=== PATIENT | female | born 1985 | race Caucasian/White ===

== ENCOUNTER 2017-07-11 14:44 | Inpatient (IN) | payer BC, OTHER ==
[2017-07-11 15:28] LABS: Amorphous Sediment,Urine Occasional /hpf; Appearance,Urine Cloudy (Clear); Bacteria,Urine Few /hpf; Bilirubin,Urine Negative (Negative); Blood,Urine Large (Negative); Color,Urine Light Yellow; Glucose,Urine (UA) Negative (Negative); Ketones,Urine Negative (Negative); Leukocyte Esterase,Urine Trace (Negative); Mucus,Urine Rare /hpf; PH, Urine 6.5 (5.0-8.0); Protein,Urine Negative (Negative); RBC,Urine 11 /hpf (0-5); Specific Gravity,Urine 1.002 (1.001-1.035); Squamous Epithelial Cell,Urine 1 /hpf (0-4); Urobilinogen,Urine <2.0 mg/dL (<2.0); WBC,Urine 16 /hpf (0-5)
[2017-07-11 16:25] LABS: Basophils # (A) 0.1 k/uL (0-0.2); Basophils % (A) 1 %; Eosinophils # (A) 0.1 k/uL (0-0.7); Eosinophils % (A) 1 %; HCT 41.5 % (34.0-46.0); HGB 13.8 gm/dL (11.4-16.0); Lymphocytes # (A) 2.4 k/uL (1.0-4.8); Lymphocytes % (A) 32 %; MCH 29.5 pg (25.0-35.0); MCHC 33.2 g/dL (31.0-37.0); MCV 88.8 fL (80.0-100.0); Mean Platelet Volume 8.4; Monocytes # (A) 0.4 k/uL (0-1.0); Monocytes % (A) 6 %; Neutrophils # (A) 4.4 k/uL (1.3-7.7); Neutrophils % (A) 59 %; Platelet Count 242 k/uL (150-450); RBC 4.67 m/uL (3.80-5.40); RDW 13.2 % (11.5-15.5); WBC 7.5 k/uL (3.8-10.6)
[2017-07-11] MEDS ORDERED: FAMOTIDINE 20 MG TAB PO STA (16:29)
[2017-07-11] MEDS ORDERED: IBUPROFEN 600 MG TAB PO STA (16:29)
[2017-07-11 16:34] LABS: ALT 772 U/L (9-52); AST 186 U/L (14-36); Albumin 4.3 g/dL (3.5-5.0); Alkaline Phosphatase 196 U/L (38-126); Amylase 45 U/L (30-110); Anion Gap 11 mmol/L; Blood Urea Nitrogen 12 mg/dL (7-17); Calcium 9.4 mg/dL (8.4-10.2); Carbon Dioxide 26 mmol/L (22-30); Chloride 104 mmol/L (98-107); Glucose 85 mg/dL (74-99); Lipase 51 U/L (23-300); Potassium 3.9 mmol/L (3.5-5.1); Sodium 141 mmol/L (137-145); Total Bilirubin 0.6 mg/dL (0.2-1.3); Total Protein 7.5 g/dL (6.3-8.2)
--- NOTE | 2017-07-11 17:19 | ED ---
Abdominal Pain HPI - General Chief Complaint: Abdominal Pain Stated Complaint: Gallbladder, high liver enzymes Time Seen by Provider: 07/11/17 16:12 Source: patient Mode of arrival: ambulatory Limitations: no limitations - History of Present Illness Initial Comments: 32 yoF presenting after being sent by her primary care physician E to concern for elevated liver enzymes. Patient states for the last 3 days she has constant epigastric pressure is accompanied by emesis. She states it is been waxing and waning without any alleviating or exacerbating symptoms. She states she has had similar pain for months however it has never been this consistent. She saw her primary care doctor who ordered labs and found her liver enzymes be over 900. Patient currently denies any pain. - Related Data Home Medications Medication Instructions Recorded Confirmed No Known Home Medications [No 07/11/17 07/11/17 Known Home Medications] Allergies Allergy/AdvReac Type Severity Reaction Status Date / Time No Known Allergies Allergy Verified 07/11/17 16:34 Review of Systems ROS Statement: Those systems with pertinent positive or pertinent negative responses have been documented in the HPI. ROS Other: All systems not noted in ROS Statement are negative. Respiratory: Denies: cough, dyspnea Cardiovascular: Denies: chest pain Gastrointestinal: Reports: abdominal pain, nausea, vomiting Genitourinary: Denies: urgency, dysuria Musculoskeletal: Denies: back pain Past Medical History Past Medical History: No Reported History History of Any Multi-Drug Resistant Organisms: None Reported Additional Past Surgical History / Comment(s): D&C Past Anesthesia/Blood Transfusion Reactions: No Reported Reaction Past Psychological History: No Psychological Hx Reported Smoking Status: Never smoker Past Alcohol Use History: None Reported Past Drug Use History: None Reported - Past Family History Mother Family Medical History: No Reported History General Exam Limitations: no limitations General appearance: alert, in no apparent distress Head exam: Present: atraumatic, normocephalic Eye exam: Present: normal appearance, EOMI Respiratory exam: Present: normal lung sounds bilaterally. Absent: respiratory distress, wheezes Cardiovascular Exam: Present: regular rate, normal rhythm, normal heart sounds GI/Abdominal exam: Present: soft. Absent: distended, tenderness, guarding, rebound (no Aviles's sign ) Extremities exam: Present: normal inspection Neurological exam: Present: alert Psychiatric exam: Present: normal affect, normal mood Skin exam: Present: warm, dry, intact Course Vital Signs 07/11/17 07/11/17 15:03 18:03 Temperature 98.5 F Pulse Rate 89 74 Respiratory 18 18 Rate Blood Pressure 143/75 129/78 O2 Sat by Pulse 98 97 Oximetry Medical Decision Making - Medical Decision Making 32 yoF presenting with the c/c of abdominal pain and elevated LFTs. On initial exam the patient is awake, alert, and in NAD. VSS. patient is nontoxic appearing and has no abdominal pain. Her ALT was found to be 772, AST 186, and alk phos 196. Her total bili was not elevated and she had no leukocytosis. Patient's UA had WBCs and RBCS, however the patient is currently on her period. She denies urinary symptoms. Unlikely UTI and will elect not to treat. US showed hepatomegaly and possible acute cholecystitis. Started patient on Rocephin Spoke with Dr. Marsh who is agreeable to admission. He would like Dr. Benítez on consult. He would like her to be on a clear liquid diet until midnight and a CMP in the am. Patient is currently resting comfortably and ready for transfer to the floor. - Lab Data Result diagrams: 07/11/17 15:35 07/11/17 15:35 Lab Results 07/11/17 07/11/17 07/11/17 Range/Units 15:06 15:06 15:35 WBC (3.8-10.6) k/uL RBC (3.80-5.40) m/uL Hgb (11.4-16.0) gm/dL Hct (34.0-46.0) % MCV (80.0-100.0) fL MCH (25.0-35.0) pg MCHC (31.0-37.0) g/dL RDW (11.5-15.5) % Plt Count (150-450) k/uL Neutrophils % % Lymphocytes % % Monocytes % % Eosinophils % % Basophils % % Neutrophils # (1.3-7.7) k/uL Lymphocytes # (1.0-4.8) k/uL Monocytes # (0-1.0) k/uL Eosinophils # (0-0.7) k/uL Basophils # (0-0.2) k/uL Sodium 141 (137-145) mmol/L Potassium 3.9 (3.5-5.1) mmol/L Chloride 104 (98-107) mmol/L Carbon Dioxide 26 (22-30) mmol/L Anion Gap 11 mmol/L BUN 12 (7-17) mg/dL Creatinine 0.70 (0.52-1.04) mg/dL Est GFR (MDRD) Af Amer >60 (>60 ml/min/1.73 sqM) Est GFR (MDRD) Non-Af >60 (>60 ml/min/1.73 sqM) Glucose 85 (74-99) mg/dL Calcium 9.4 (8.4-10.2) mg/dL Total Bilirubin 0.6 (0.2-1.3) mg/dL AST 186 H (14-36) U/L ALT 772 H (9-52) U/L Alkaline Phosphatase 196 H (38-126) U/L Total Protein 7.5 (6.3-8.2) g/dL Albumin 4.3 (3.5-5.0) g/dL Amylase 45 (30-110) U/L Lipase 51 (23-300) U/L Urine Color Light Yellow Urine Appearance Cloudy H (Clear) Urine pH 6.5 (5.0-8.0) Ur Specific [place] 1.002 (1.001-1.035) Urine Protein Negative (Negative) Urine Glucose (UA) Negative (Negative) Urine Ketones Negative (Negative) Urine Blood Large H (Negative) Urine Nitrite Negative (Negative) Urine Bilirubin Negative (Negative) Urine Urobilinogen <2.0 (<2.0) mg/dL Ur Leukocyte Esterase Trace H (Negative) Urine RBC 11 H (0-5) /hpf Urine WBC 16 H (0-5) /hpf Ur Squamous Epith Cells 1 (0-4) /hpf Amorphous Sediment Occasional H (None) /hpf Urine Bacteria Few H (None) /hpf Urine Mucus Rare H (None) /hpf Urine HCG, Qual Not Detected (Not Detectd) 07/11/17 Range/Units 15:35 WBC 7.5 (3.8-10.6) k/uL RBC 4.67 (3.80-5.40) m/uL Hgb 13.8 (11.4-16.0) gm/dL Hct 41.5 (34.0-46.0) % MCV 88.8 (80.0-100.0) fL MCH 29.5 (25.0-35.0) pg MCHC 33.2 (31.0-37.0) g/dL RDW 13.2 (11.5-15.5) % Plt Count 242 (150-450) k/uL Neutrophils % 59 % Lymphocytes % 32 % Monocytes % 6 % Eosinophils % 1 % Basophils % 1 % Neutrophils # 4.4 (1.3-7.7) k/uL Lymphocytes # 2.4 (1.0-4.8) k/uL Monocytes # 0.4 (0-1.0) k/uL Eosinophils # 0.1 (0-0.7) k/uL Basophils # 0.1 (0-0.2) k/uL Sodium (137-145) mmol/L Potassium (3.5-5.1) mmol/L Chloride (98-107) mmol/L Carbon Dioxide (22-30) mmol/L Anion Gap mmol/L BUN (7-17) mg/dL Creatinine (0.52-1.04) mg/dL Est GFR (MDRD) Af Amer (>60 ml/min/1.73 sqM) Est GFR (MDRD) Non-Af (>60 ml/min/1.73 sqM) Glucose (74-99) mg/dL Calcium (8.4-10.2) mg/dL Total Bilirubin (0.2-1.3) mg/dL AST (14-36) U/L ALT (9-52) U/L Alkaline Phosphatase (38-126) U/L Total Protein (6.3-8.2) g/dL Albumin (3.5-5.0) g/dL Amylase (30-110) U/L Lipase (23-300) U/L Urine Color Urine Appearance (Clear) Urine pH (5.0-8.0) Ur Specific [place] (1.001-1.035) Urine Protein (Negative) Urine Glucose (UA) (Negative) Urine Ketones (Negative) Urine Blood (Negative) Urine Nitrite (Negative) Urine Bilirubin (Negative) Urine Urobilinogen (<2.0) mg/dL Ur Leukocyte Esterase (Negative) Urine RBC (0-5) /hpf Urine WBC (0-5) /hpf Ur Squamous Epith Cells (0-4) /hpf Amorphous Sediment (None) /hpf Urine Bacteria (None) /hpf Urine Mucus (None) /hpf Urine HCG, Qual (Not Detectd) Disposition Clinical Impression: Hepatomegaly, Acute cholecystitis Disposition: ADMITTED IP TO THIS HOSP Condition: Good Referrals: Sirisha Lantigua DO [Primary Care Provider] - 1-2 days Decision Date: 07/11/17 Decision Time: 19:20
--- NOTE | 2017-07-11 17:54 | XR ---
EXAMINATION TYPE: XR KUB DATE OF EXAM: 07/11/2017 COMPARISON: NONE INDICATION: Abdomen pain epigastric pain TECHNIQUE: Single view abdomen frontal projection upright view FINDINGS: There is a normal bowel gas pattern. Psoas margins are normal. No organomegaly is present. Osseous structures appear intact. IMPRESSION: 1. Unremarkable abdomen.
--- NOTE | 2017-07-11 18:26 | US ---
EXAMINATION TYPE: US abdomen limited DATE OF EXAM: 07/11/2017 COMPARISON: US CLINICAL HISTORY: Elevated LFTs and epigastric pain . Elevated LFT's and epigastric pain EXAM MEASUREMENTS: Liver Length: 18.0 cm Gallbladder Wall: 0.5 cm CBD: 0.3 cm Right Kidney: 10.4 x 3.9 x 4.8 cm Pancreas: wnl, tail obscured by overlying bowel gas Liver: Enlarged. Craniocaudal dimension is 18 cm. Normal is less than 15.5 cm. Gallbladder: Multiple gallstones with thickened wall. Gallbladder wall 0.45 cm which is thickened. Normal less than 0.3 cm. Evidence for sonographic Aviles's sign: No CBD: wnl Right Kidney: wnl IMPRESSION: 1. Hepatomegaly measuring 18 cm 2. Cholelithiasis. Some wall thickening may be present. Consider cholecystitis within the differentia l.
[2017-07-11] MEDS ORDERED: cefTRIAXone IN SWFI 1,000 MG/10 ML SYRINGE IVP STA (18:39)
[2017-07-11] MEDS ORDERED: ONDANSETRON 4 MG/2 ML VIAL IVP PRN (19:23)
[2017-07-11] MEDS ORDERED: NALOXONE 0.4 MG/ML 1 ML VIAL IV PRN (19:23)
[2017-07-11] MEDS ORDERED: ACETAMINOPHEN TAB 325 MG TAB PO PRN (19:23)
[2017-07-11] MEDS: LACTATED RINGERS 1,000 ML IV SCH (19:59)
[2017-07-11 22:00] VITALS: BMI 30.2
[2017-07-12] MEDS: LACTATED RINGERS 1,000 ML IV SCH ×4 (03:49→12:13)
[2017-07-12] MEDS: KETOROLAC 30 MG/ML 1 ML VIAL IVP PRN ×3 (06:08→23:45)
[2017-07-12 07:05] LABS: ALT 539 U/L (9-52); AST 110 U/L (14-36); Albumin 3.4 g/dL (3.5-5.0); Alkaline Phosphatase 157 U/L (38-126); Anion Gap 9 mmol/L; Blood Urea Nitrogen 10 mg/dL (7-17); Calcium 8.6 mg/dL (8.4-10.2); Carbon Dioxide 28 mmol/L (22-30); Chloride 105 mmol/L (98-107); Glucose 84 mg/dL (74-99); Potassium 3.8 mmol/L (3.5-5.1); Sodium 142 mmol/L (137-145); Total Bilirubin 0.7 mg/dL (0.2-1.3); Total Protein 6.2 g/dL (6.3-8.2)
[2017-07-12] MEDS ORDERED: cefTRIAXone IN SWFI 1,000 MG/10 ML SYRINGE IVP SCH (09:00)
[2017-07-12] MEDS ORDERED: IV FLUID CONTINUATION 1,000 ML IV ONE (09:30)
[2017-07-12] MEDS ORDERED: DEXAMETHASONE SOD PHOSPHATE 10 MG/ML 1 ML VIAL INTRAARTIC ONE (10:12)
[2017-07-12] MEDS ORDERED: ONDANSETRON 4 MG/2 ML VIAL IVP ONE (10:13)
--- NOTE | 2017-07-12 10:59 | P.GSHP ---
History of Present Illness H&P Date: 07/11/17 Chief Complaint: Right upper quadrant pain This is a 32-year-old female who sees Dr. Sirisha Lantigua is an outpatient. Patient's had complaints of right quadrant pain for over one week. Patient presents emergency room yesterday with complaints of abdominal pain. Patient evidence of choledocholithiasis elevated liver enzymes. She also some to have gallstones. Today her pain is resolved. Her liver function test improved. She 'll undergo laparoscopic cholecystectomy today. Past Medical History Past Medical History: No Reported History History of Any Multi-Drug Resistant Organisms: None Reported Additional Past Surgical History / Comment(s): D&C Past Anesthesia/Blood Transfusion Reactions: No Reported Reaction Smoking Status: Never smoker - Past Family History Mother Family Medical History: Coronary Artery Disease (CAD) Additional Family Medical History / Comment(s): Pace maker and defibilator placed. Medications and Allergies Home Medications Medication Instructions Recorded Confirmed Type No Known Home Medications [No 07/11/17 07/11/17 History Known Home Medications] Allergies Allergy/AdvReac Type Severity Reaction Status Date / Time No Known Allergies Allergy Verified 07/11/17 16:34 Surgical - Exam Vital Signs Temp Pulse Resp BP Pulse Ox 98.5 F 89 18 143/75 98 07/11/17 15:03 07/11/17 15:03 07/11/17 15:03 07/11/17 15:03 07/11/17 15:03 - General well developed, no distress - Eyes PERRL - ENT normal pinna - Neck no masses - Respiratory normal expansion - Cardiovascular Rhythm: regular - Abdomen Abdomen: soft, non tender Results - Labs 07/11/17 15:35 07/12/17 06:34 Abnormal Lab Results - Last 24 Hours (Table) 07/11/17 07/11/17 07/12/17 Range/Units 15:06 15:35 06:34 AST 186 H 110 H (14-36) U/L ALT 772 H 539 H (9-52) U/L Alkaline Phosphatase 196 H 157 H (38-126) U/L Total Protein 6.2 L (6.3-8.2) g/dL Albumin 3.4 L (3.5-5.0) g/dL Urine Appearance Cloudy H (Clear) Urine Blood Large H (Negative) Ur Leukocyte Esterase Trace H (Negative) Urine RBC 11 H (0-5) /hpf Urine WBC 16 H (0-5) /hpf Amorphous Sediment Occasional H (None) /hpf Urine Bacteria Few H (None) /hpf Urine Mucus Rare H (None) /hpf Diabetes panel 07/11/17 07/12/17 Range/Units 15:35 06:34 Sodium 141 142 (137-145) mmol/L Potassium 3.9 3.8 (3.5-5.1) mmol/L Chloride 104 105 (98-107) mmol/L Carbon Dioxide 26 28 (22-30) mmol/L BUN 12 10 (7-17) mg/dL Creatinine 0.70 0.70 (0.52-1.04) mg/dL Glucose 85 84 (74-99) mg/dL Calcium 9.4 8.6 (8.4-10.2) mg/dL AST 186 H 110 H (14-36) U/L ALT 772 H 539 H (9-52) U/L Alkaline Phosphatase 196 H 157 H (38-126) U/L Total Protein 7.5 6.2 L (6.3-8.2) g/dL Albumin 4.3 3.4 L (3.5-5.0) g/dL Calcium panel 07/11/17 07/12/17 Range/Units 15:35 06:34 Calcium 9.4 8.6 (8.4-10.2) mg/dL Albumin 4.3 3.4 L (3.5-5.0) g/dL Pituitary panel 07/11/17 07/12/17 Range/Units 15:35 06:34 Sodium 141 142 (137-145) mmol/L Potassium 3.9 3.8 (3.5-5.1) mmol/L Chloride 104 105 (98-107) mmol/L Carbon Dioxide 26 28 (22-30) mmol/L BUN 12 10 (7-17) mg/dL Creatinine 0.70 0.70 (0.52-1.04) mg/dL Glucose 85 84 (74-99) mg/dL Calcium 9.4 8.6 (8.4-10.2) mg/dL Adrenal panel 07/11/17 07/12/17 Range/Units 15:35 06:34 Sodium 141 142 (137-145) mmol/L Potassium 3.9 3.8 (3.5-5.1) mmol/L Chloride 104 105 (98-107) mmol/L Carbon Dioxide 26 28 (22-30) mmol/L BUN 12 10 (7-17) mg/dL Creatinine 0.70 0.70 (0.52-1.04) mg/dL Glucose 85 84 (74-99) mg/dL Calcium 9.4 8.6 (8.4-10.2) mg/dL Total Bilirubin 0.6 0.7 (0.2-1.3) mg/dL AST 186 H 110 H (14-36) U/L ALT 772 H 539 H (9-52) U/L Alkaline Phosphatase 196 H 157 H (38-126) U/L Total Protein 7.5 6.2 L (6.3-8.2) g/dL Albumin 4.3 3.4 L (3.5-5.0) g/dL Assessment and Plan Assessment: Cholelithiasis with cholecystitis. Patient undergo laparoscopic cholecystectomy
[2017-07-12] MEDS ORDERED: HEPARIN SODIUM,PORCINE 5,000 UNIT/ML 1 ML VIAL SQ ONE (11:00)
[2017-07-12] MEDS ORDERED: fentaNYL (PF) 50 MCG/ML 2 ML AMP ONE (11:34)
[2017-07-12] MEDS ORDERED: GLYCOPYRROLATE 0.2 MG/ML 2 ML VIAL ONE (11:34)
[2017-07-12] MEDS ORDERED: NEOSTIGMINE 1 MG/ML 10 ML VIAL ONE (11:34)
[2017-07-12] MEDS ORDERED: PROPOFOL 10 MG/ML 20 ML VIAL IV ONE (11:34)
[2017-07-12] MEDS ORDERED: ROCURONIUM BROMIDE 10 MG/ML 10 ML VIAL IV ONE (11:34)
[2017-07-12] MEDS ORDERED: MIDAZOLAM 2 MG/2 ML VIAL ONE (11:34)
[2017-07-12] MEDS ORDERED: KETOROLAC 30 MG/ML 1 ML VIAL ONE (11:34)
[2017-07-12] MEDS ORDERED: SUCCINYLCHOLINE CHLORIDE 100 MG/5 ML SYR IV ONE (11:34)
[2017-07-12] MEDS ORDERED: LIDOCAINE 1% INJ 10MG/ML (20 ML MDV) ONE (11:34)
[2017-07-12] MEDS ORDERED: MORPHINE SULFATE 10 MG/ML SYRINGE ONE (11:34)
[2017-07-12] MEDS ORDERED: BUPIVACAINE (PF) 0.25% 30 ML VIAL SQ ONE (11:57)
--- NOTE | 2017-07-12 12:22 | P.OP ---
Date of Procedure: 07/12/17 Preoperative Diagnosis: Cholecystitis Postoperative Diagnosis: cholecystitis Procedure(s) Performed: Laparoscopic cholecystectomy Anesthesia: FATIMAH Surgeon: Henry Marsh Estimated Blood Loss (ml): 5 Pathology: other (Gallbladder) Condition: stable Disposition: PACU Description of Procedure: The patient was placed on the operating table. The patient received a general endotracheal tube anesthesia. The patients abdomen was prepped and draped in the usual sterile fashion. Through an infraumbilical stab incision, the fascia of the anterior abdominal wall was grasped with a pair of Kochers and then the Veress needle was placed in the peritoneal cavity. Position of the Veress needle was confirmed with positive drop test. The abdomen was then insufflated. After adequate insufflation, the 10 mm trocar was placed in the peritoneal cavity. Following this the laparoscope was placed in the peritoneal cavity. The patient was placed in the head-up, right side up position and then a 5 mm trocar was placed in the right lateral and right subcostal position under direct visualization. A 8 mm trocar was placed in the epigastric position. The gallbladder was grasped in the fundus and infundibulum. Traction on the gallbladder was placed in the lateral and the cephalad positions. The triangle of Calot was visualized.. The cystic duct was bluntly dissected until the union of the cystic duct and common bile duct was seen. The cystic duct was then divided and sealed with the Harmonic scissors. A PDS Endoloop was then placed throughout the cystic duct stump. The cystic artery divided and sealed with the Harmonic scissors. The gallbladder was then removed from the liver bed using Harmonic scissors. The gallbladder was then extracted through the epigastric port site. Operative field was checked for any bleeding spots and Harmonic scissors was used to coagulate the liver bed. The abdomen was irrigated. The trocars were removed. The skin was closed using interrupted 3-0 Vicryl suture. Dermabond dressing were applied. The patient tolerated the procedure well.
[2017-07-12] MEDS: MORPHINE SULFATE 4 MG/ML SYRINGE IVP PRN ×3 (12:33→20:23)
--- NOTE | 2017-07-12 14:26 | P.CONS ---
History of Present Illness - Reason for Consult Consult date: 07/12/17 Medical management Requesting physician: Henry Marsh - Chief Complaint Abdominal pain and elevated LFTs - History of Present Illness This is a 32-year-old female, patient of [facility]. She has no significant past medical history. Patient reports that she is had episodes of right upper quadrant and epigastric abdominal pain with nausea and vomiting off and on for several months. Within the last week she had severe symptoms and went to her PCP on Tuesday. Blood work was drawn. On Tuesday she was notified to have elevated LFTs and was told that one of her numbers was over 900. She was told to go to the emergency room for further evaluation. On admission AST was 186 ALT 772 and alk phos was 196. Abdominal ultrasound had shown hepatomegaly with 18 cm with gallstones and gallbladder wall thickening. She was admitted to surgical service and underwent a laparoscopic cholecystectomy today. Patient complaining of some mild pain and nausea that improved with medication. She denies any chest pain or shortness of breath. Denies any vomiting. Denies any bowel movement changes or urinary symptoms. We've been consulted for medical management. Her urinalysis had revealed WBCs and RBCs. Patient is currently on her period. Urine culture obtained. She's asymptomatic for UTI. Was started on Rocephin for her acute cholecystitis in the emergency room. Review of Systems Please refer to HPI otherwise unremarkable Past Medical History Past Medical History: No Reported History History of Any Multi-Drug Resistant Organisms: None Reported Additional Past Surgical History / Comment(s): D&C Past Anesthesia/Blood Transfusion Reactions: No Reported Reaction Smoking Status: Never smoker - Past Family History Mother Family Medical History: Coronary Artery Disease (CAD) Additional Family Medical History / Comment(s): Pace maker and defibilator placed. Medications and Allergies Home Medications Medication Instructions Recorded Confirmed Type No Known Home Medications [No 07/11/17 07/11/17 History Known Home Medications] Allergies Allergy/AdvReac Type Severity Reaction Status Date / Time No Known Allergies Allergy Verified 07/11/17 16:34 Physical Exam Vitals: Vital Signs Temp Pulse Pulse Pulse Pulse Resp BP 07/12/17 13:50 75 07/12/17 13:35 74 07/12/17 13:20 75 18 07/12/17 13:05 98.9 F 64 18 07/12/17 12:50 62 16 07/12/17 12:35 66 16 07/12/17 12:20 97.8 F 89 16 07/12/17 10:17 98.6 F 84 16 07/12/17 08:05 98.1 F 74 18 07/12/17 07:00 98.1 F 74 17 07/12/17 03:45 97.9 F 66 16 07/11/17 20:40 98.1 F 79 16 07/11/17 20:02 98.4 F 76 18 128/72 07/11/17 19:31 80 18 117/79 07/11/17 18:03 74 18 129/78 07/11/17 15:03 98.5 F 89 18 143/75 BP BP Pulse Ox 07/12/17 13:50 120/65 95 07/12/17 13:35 110/69 95 07/12/17 13:20 107/72 95 07/12/17 13:05 112/69 94 L 07/12/17 12:50 116/62 95 07/12/17 12:35 116/56 100 07/12/17 12:20 119/62 99 07/12/17 10:17 111/79 98 07/12/17 08:05 104/69 96 07/12/17 07:00 104/69 96 07/12/17 03:45 110/63 98 07/11/17 20:40 122/76 98 07/11/17 20:02 98 07/11/17 19:31 98 07/11/17 18:03 97 07/11/17 15:03 98 Intake and Output 07/11/17 07/12/17 07/12/17 22:59 06:59 14:59 Intake Total 240 970 900 Output Total 5 Balance 240 970 895 Intake: IV 900 Intake, IV Titration 970 Amount Lactated Ringers 1,000 ml 970 @ 125 mls/hr IV .Q8H [facility] Rx#:[id number] Oral 240 Output: Estimated Blood Loss 5 Other: # Voids 2 Weight 90 kg Head normocephalic Neck supple Lungs clear to auscultation bilaterally no wheezing or crackles Heart regular rate and rhythm S1-S2, no rub or gallop Abdomen is soft tender incision sites. Hypoactive bowel sounds Extremities no edema Neuro alert and orientated to 3 Results CBC & Chem 7: 07/11/17 15:35 07/12/17 06:34 Labs: Abnormal Lab Results - Last 24 Hours (Table) 07/11/17 07/11/17 07/12/17 Range/Units 15:06 15:35 06:34 AST 186 H 110 H (14-36) U/L ALT 772 H 539 H (9-52) U/L Alkaline Phosphatase 196 H 157 H (38-126) U/L Total Protein 6.2 L (6.3-8.2) g/dL Albumin 3.4 L (3.5-5.0) g/dL Urine Appearance Cloudy H (Clear) Urine Blood Large H (Negative) Ur Leukocyte Esterase Trace H (Negative) Urine RBC 11 H (0-5) /hpf Urine WBC 16 H (0-5) /hpf Amorphous Sediment Occasional H (None) /hpf Urine Bacteria Few H (None) /hpf Urine Mucus Rare H (None) /hpf Assessment and Plan Assessment: 1. Acute cholecystitis: Status post laparoscopic cholecystectomy. Postop day # 0. Started on clear liquid diet per surgeon. Started on Rocephin in the emergency room 2. Urinalysis with large amount of blood likely related to her menstrual cycle. Trace leukocyte Estrace with few bacteria noted on urinalysis. Patient is asymptomatic. Check urine culture. Doubt UTI. But, Covered anyways with the Rocephin Anticipating discharge home tomorrow Thank you for this consultation. We will continue to follow along with you Time with Patient: Greater than 30 (Greater than 50% of the total time spent in counseling and coordination of care.I performed an examination of the patient and discussed their management with the physician Compensation Advisor. I have reviewed the Physician Compensation Advisor's notes and agree with the documented findings and plan of care)
[2017-07-13] MEDS: LACTATED RINGERS 1,000 ML IV SCH (01:39)
[2017-07-13 05:07] VITALS: RESP 16
[2017-07-13] MEDS: KETOROLAC 30 MG/ML 1 ML VIAL IVP PRN (08:40)
[2017-07-13 10:13] VITALS: BP 125/79; PULSE 89; TEMP 98.2
--- NOTE | 2017-07-13 11:11 | P.DS ---
Providers Date of admission: 07/11/17 19:21 Expected date of discharge: 07/13/17 Attending physician: Henry Marsh Consults: 07/11/17 19:24 Consult Physician Routine Consulting Provider: Sue Benítez Consult Reason/Comments: Medical management Do you want consulting provider notified?: Yes Primary care physician: Sirisha Lantigua [facility] Course: Pleasant 32-year-old female presented on the day of admission to the emergency room with a chief complaint right upper quadrant pain onset 1 week prior. Patient stated that the abdominal discomfort did not resolve. Patient stated that the last 3 days the pain was constant in the right upper quadrant radiating to the epigastric area. There was no alleviating or exacerbating symptoms. Patient stated that she had similar pain several months ago however it resolved on its own. Patient saw her primary care physician who ordered labs and found her liver enzymes to be elevated advised patient to come into the emergency room to be admitted for the above-mentioned symptoms patient underwent on July 12 laparoscopic cholecystectomy for acute cholecystitis. Impression discharge diagnoses Present on admission elevated liver enzymes suspect due to acute cholecystitis Present on admission right upper quadrant abdominal pain suspect due to acute cholecystitis Urinalysis with a large amount of blood likely related to menstrual cycle no evidence of a UTI urine culture negative The above impression and plan of care have been discussed and directed by signing physician. Leilani Mace nurse practitioner acting as scribe for signing physician. Patient Condition at Discharge: Good Plan - Discharge Summary New Discharge Prescriptions: New Acetaminophen Tab [Tylenol Tab] 650 mg PO Q4H PRN #30 tablet PRN Reason: Mild Breakthrough Pain Ibuprofen [Motrin] 400 mg PO Q8HR PRN #30 tab PRN Reason: Mild Breakthrough Pain Discharge Medication List Acetaminophen Tab [Tylenol Tab] 650 mg PO Q4H PRN #30 tablet 07/13/17 [Rx] Ibuprofen [Motrin] 400 mg PO Q8HR PRN #30 tab 07/13/17 [Rx] Follow up Appointment(s)/Referral(s): Sirisha Lantigua DO [Primary Care Provider] - 1-2 days Henry Marsh MD [STAFF PHYSICIAN] - 1 Week Activity/Diet/Wound Care/Special Instructions: No tub bath for six weeks. Shower daily. No lifting over 10 pounds for the next 6 weeks. May use ice packs to surgical site. Low-fat diet Avoid constipation use [id number] stool softeners if needed May return to work this coming TuesdayJuly 18 with light duty Discharge Disposition: HOME SELF-CARE
--- NOTE | 2017-07-13 11:19 | P.PN ---
Subjective Progress Note Date: 07/13/17 This is a 32-year-old female, patient of [facility]. She has no significant past medical history. Patient reports that she is had episodes of right upper quadrant and epigastric abdominal pain with nausea and vomiting off and on for several months. Within the last week she had severe symptoms and went to her PCP on Tuesday. Blood work was drawn. On Tuesday she was notified to have elevated LFTs and was told that one of her numbers was over 900. She was told to go to the emergency room for further evaluation. On admission AST was 186 ALT 772 and alk phos was 196. Abdominal ultrasound had shown hepatomegaly with 18 cm with gallstones and gallbladder wall thickening. She was admitted to surgical service and underwent a laparoscopic cholecystectomy today. Patient complaining of some mild pain and nausea that improved with medication. She denies any chest pain or shortness of breath. Denies any vomiting. Denies any bowel movement changes or urinary symptoms. We've been consulted for medical management. Her urinalysis had revealed WBCs and RBCs. Patient is currently on her period. Urine culture obtained. She's asymptomatic for UTI. Was started on Rocephin for her acute cholecystitis in the emergency room. On 07/13/2017 patient is alert and oriented 3 in no apparent distress is minimal discomfort in the abdominal surgical site otherwise no complaints patient is tolerating diet well no nausea or vomiting. There is no fever or chills no chest pain no shortness of breath no cough and no urinary symptoms. Objective - Vital Signs Vital signs: Vital Signs Temp 98.2 F 07/13/17 07:51 Pulse 89 07/13/17 07:51 Resp 16 07/13/17 07:51 BP 125/79 07/13/17 07:51 Pulse Ox 97 07/13/17 07:51 Intake & Output 07/12/17 07/13/17 07/13/17 18:59 06:59 18:59 Intake Total 900 2320 240 Output Total 705 Balance 195 2320 240 Intake: IV 900 Oral 2320 240 Output: Urine 700 Estimated Blood Loss 5 Other: # Voids 1 - Exam Head normocephalic and atraumatic Neck supple no JVD no goiter Lungs clear to auscultation bilaterally no wheezing or crackles Heart regular rate and rhythm S1-S2, no rub or gallop Abdomen is soft tender incision sites. Hypoactive bowel sounds Extremities no edema no cyanosis or clubbing Neuro alert and orientated to 3 - Labs CBC & Chem 7: 07/11/17 15:35 07/12/17 06:34 Labs: Microbiology - Last 24 Hours (Table) 07/11/17 08:29 Urine Culture - Preliminary Urine,Voided Assessment and Plan Plan: 1. Acute cholecystitis: Status post laparoscopic cholecystectomy. Postop day # 1. Tolerating diet well. Started on Rocephin in the emergency room 2. Urinalysis with large amount of blood likely related to her menstrual cycle. Trace leukocyte Estrace with few bacteria noted on urinalysis. Patient is asymptomatic. Check urine culture. Doubt UTI. But, Covered anyways with the Rocephin. Patient should follow-up with her primary care physician Dr. Sirisha Lantigua within the next 5 days Liver enzymes should be rechecked urine analysis should be rechecked Patient is cleared for discharge today from medical standpoint
== END 2017-07-13 12:59 | disposition home or self-care (01) | DRG 419 ==
LOC: EC 14:44 → 6PED 19:21
PROVIDERS: ADMIT Surgery; ATTEND Surgery
PROC: 0FT44ZZ Resection of Gallbladder, Percutaneous Endoscopic Approach (ICD-10-PCS; principal; 2017-07-12 09:25)
DX: K80.00 Calculus of gallbladder with acute cholecystitis without obstruction (principal); R16.0 Hepatomegaly, not elsewhere classified; R74.8 Abnormal levels of other serum enzymes; Z82.49 Family history of ischemic heart disease and other diseases of the circulatory system
CPT/HCPCS: 36415; 74018; 76705; 80053; 81001; 81025; 82150; 83690; 85025; 87086; 88304; 96374; 99285

== ENCOUNTER → 2018-10-03 | Outpatient (CLI) | payer BC ==
[2018-10-04 01:02] LABS: HCG,Quantitative Serum 3376.6 mIU/mL; T4, Free (Free Thyroxine) 0.8 ng/dL (0.80-1.80)
== END | disposition home or self-care (01) ==
LOC: LABWHC1 16:12
PROVIDERS: ATTEND Obstetrics & Gynecology
DX: O03.9 Complete or unspecified spontaneous abortion without complication (principal); Z13.29 Encounter for screening for other suspected endocrine disorder
CPT/HCPCS: 36415; 84439; 84443; 84702

== ENCOUNTER → 2018-10-03 | Outpatient (CLI) | payer BC ==
[2018-10-03 17:28] LABS: Basophils # (A) 0.1 k/uL (0-0.2); Basophils % (A) 1 %; Eosinophils # (A) 0.1 k/uL (0-0.7); Eosinophils % (A) 2 %; HCT 37.8 % (34.0-46.0); Lymphocytes # (A) 2.9 k/uL (1.0-4.8); Lymphocytes % (A) 40 %; MCH 28.9 pg (25.0-35.0); MCHC 31.7 g/dL (31.0-37.0); MCV 91.1 fL (80.0-100.0); Mean Platelet Volume 8.9; Monocytes # (A) 0.3 k/uL (0-1.0); Monocytes % (A) 4 %; Neutrophils # (A) 3.7 k/uL (1.3-7.7); Neutrophils % (A) 51 %; Platelet Count 270 k/uL (150-450); RBC 4.15 m/uL (3.80-5.40); RDW 13.6 % (11.5-15.5); WBC 7.2 k/uL (3.8-10.6)
== END ==
LOC: LABPAT 16:10
PROVIDERS: ATTEND Obstetrics & Gynecology
DX: Z01.812 Encounter for preprocedural laboratory examination (principal)
CPT/HCPCS: 85025

== ENCOUNTER → 2018-10-06 | Outpatient (CLI) | payer BC | END | disposition home or self-care (01) | LOC: LABWHC1 12:57 | PROVIDERS: ATTEND Obstetrics & Gynecology | DX: O03.9 Complete or unspecified spontaneous abortion without complication (principal) | CPT/HCPCS: 36415; 84702 ==

== ENCOUNTER → 2018-10-13 | Outpatient (CLI) | payer BC | END | disposition home or self-care (01) | LOC: LABWHC1 14:24 | PROVIDERS: ATTEND Obstetrics & Gynecology | DX: O03.9 Complete or unspecified spontaneous abortion without complication (principal) | CPT/HCPCS: 36415; 84702 ==

== ENCOUNTER → 2018-10-18 | Outpatient (CLI) | payer BC | END | disposition home or self-care (01) | LOC: LABWHC1 08:14 | PROVIDERS: ATTEND Obstetrics & Gynecology | DX: O03.9 Complete or unspecified spontaneous abortion without complication (principal) | CPT/HCPCS: 36415; 84702 ==

== ENCOUNTER 2018-10-19 06:24 | Day surgery (SDC) | payer BC ==
[2018-10-16 13:10] VITALS: BMI 30.2
--- NOTE | 2018-10-18 19:31 | P.HPOB ---
History of Present Illness H&P Date: 10/18/18 Chief Complaint: Family planning This is a 33-year-old female 4 para 3 who presents for laparoscopic bilateral tubal ligation via fulguration for family planning. She recently had a termination of and her beta hCG levels have steadily declined. Her last beta hCG level on was 28. She would like permanent sterilization because she desires no further pregnancies. She is currently practicing abstinence since her termination. Obstetrical history: . History of 3 vaginal deliveries at term. History of 1 termination of on 09/15/2018. Gynecologic history: No history of sexual transmitted diseases. Social history: She is . She works as an housekeeper and laundry assistant. Review of Systems Constitutional: Reports fatigue, Denies chills, Denies fever Eyes: denies blurred vision, denies pain Ears, nose, mouth and throat: Denies headache, Denies sore throat Cardiovascular: Denies chest pain, Denies shortness of breath Respiratory: Denies cough Gastrointestinal: Reports diarrhea Genitourinary: Denies dysuria, Denies hematuria Menstruation: Reports menses variable Musculoskeletal: Reports low back pain, Reports myalgias Integumentary: Denies pruritus, Denies rash Neurological: Denies numbness, Denies weakness Psychiatric: Reports irritability Past Medical History Past Medical History: No Reported History, GERD/Reflux Additional Past Medical History / Comment(s): GERD IN . History of Any Multi-Drug Resistant Organisms: None Reported Past Surgical History: Cholecystectomy Additional Past Surgical History / Comment(s): D&C Past Anesthesia/Blood Transfusion Reactions: No Reported Reaction Past Psychological History: No Psychological Hx Reported Smoking Status: Never smoker Past Alcohol Use History: Occasional Past Drug Use History: None Reported - Past Family History Mother Family Medical History: Coronary Artery Disease (CAD) Additional Family Medical History / Comment(s): Pacemaker and defibrillator placed. Medications and Allergies Home Medications Medication Instructions Recorded Confirmed Type Ibuprofen [Motrin] 400 mg PO Q8HR PRN 10/16/18 10/16/18 History Allergies Allergy/AdvReac Type Severity Reaction Status Date / Time No Known Allergies Allergy Verified 10/16/18 12:56 Exam Osteopathic Statement: *. No significant issues noted on an osteopathic structural exam other than those noted in the History and Physical/Consult. HEENT: Within normal limits Heart: Regular rate and rhythm Lungs: Clear to auscultation bilaterally Abdomen: Soft, nontender Pelvic exam: Uterus is anteverted, nontender, with no adnexal masses palpated. Extremities: Negative Homans Assessment and Plan (1) Family planning Status: Acute Code(s): Z30.09 - ENCOUNTER FOR OTH GENERAL CNSL AND ADVICE ON CONTRACEPTION SNOMED Code(s): 429056256 Plan: Proceed with laparoscopic bilateral tubal ligation via fulguration. I have discussed the risks, benefits, and alternative therapies for the above- mentioned procedure and for both sedation/anesthesia as well as necessary blood products administration, if indicated, as they pertain to this patient. The patient has indicated her understanding and acceptance of the risks and procedures discussed.
[~2018-10-19 06:24] MED LIST: DEXAMETHASONE SOD PHOSPHATE 10 MG/ML 1 ML VIAL IV ONE; LACTATED RINGERS 1,000 ML IV SCH; MIDAZOLAM 2 MG/2 ML VIAL IV PRN; ONDANSETRON 4 MG/2 ML VIAL IVP ONE; Pre Op ABX Message 1 EACH MISC MISCELLANE ONE
[2018-10-19] MEDS ORDERED: FAMOTIDINE 20 MG/2 ML VIAL IVP ONE (07:05)
[2018-10-19] MEDS ORDERED: fentaNYL (PF) 50 MCG/ML 2 ML AMP ONE (07:26)
[2018-10-19] MEDS ORDERED: SUCCINYLCHOLINE CHLORIDE 100 MG/5 ML SYR IV ONE (07:26)
[2018-10-19] MEDS ORDERED: ROCURONIUM BROMIDE 10 MG/ML 10 ML VIAL IV ONE (07:26)
[2018-10-19] MEDS ORDERED: GLYCOPYRROLATE 0.2 MG/ML 2 ML VIAL ONE (07:26)
[2018-10-19] MEDS ORDERED: PROPOFOL 10 MG/ML 20 ML VIAL IV ONE (07:26)
[2018-10-19] MEDS ORDERED: KETOROLAC 30 MG/ML 1 ML VIAL ONE (07:26)
[2018-10-19] MEDS ORDERED: NEOSTIGMINE 1 MG/ML 10 ML VIAL ONE (07:26)
[2018-10-19] MEDS ORDERED: LIDOCAINE 1% INJ 10MG/ML (20 ML MDV) ONE (07:26)
[2018-10-19] MEDS ORDERED: BUPIVACAINE (PF) 0.25% 30 ML VIAL SQ ONE ×2 (08:00→08:15)
--- NOTE | 2018-10-19 08:17 | P.OP ---
Date of Procedure: 10/19/18 Preoperative Diagnosis: Family planning Postoperative Diagnosis: Same Procedure(s) Performed: Laparoscopic bilateral tubal ligation via fulguration Anesthesia: FATIMAH Surgeon: Lesvia Rodriguez Estimated Blood Loss (ml): 20 Pathology: none sent Condition: stable Disposition: same day Indications for Procedure: This is a 33-year-old female 4 para 3 who presents for laparoscopic bilateral tubal ligation via fulguration for family planning. She recently had a termination of and her beta hCG levels have steadily declined. Her last beta hCG level on was 28. She would like permanent sterilization because she desires no further pregnancies. She is currently practicing abstinence since her termination. Operative Findings: Uterus is retroverted and sounded to 9 cm. Normal uterus tubes and ovaries are noted. Description of Procedure: The patient is taken to the operating room where she is placed in the dorsal lithotomy position. She is prepped and draped in the normal sterile fashion. Examination is performed under anesthesia. Uterus is found to be in a retroverted position. No adnexal masses were palpated. Next a bivalve speculum was placed in the patient's vagina. A single-tooth tenaculum was used to grasp the anterior lip of the cervix. The uterus was sounded to 9 cm. The kroner uterine manipulator was then inserted through the cervix and the balloon was inflated. The single-tooth tenaculum is removed speculum was removed gloves were changed and attention was turned to the abdomen. The infraumbilical fold was grasped in transverse fashion with 2 Allis clamps. A small transverse incision was made with a scalpel. A hemostat was used to carry the incision down to the underlying layer of fascia. A towel clip was placed above the umbilicus for retraction. A 11 mm disposable bladeless trocar was then inserted into the peritoneal cavity under direct visualization. Once inside, pneumoperitoneum was achieved with CO2 gas. The insert was removed and the camera was placed. Intraperitoneal placement was confirmed. No bleeding was noted. Next the patient was placed in Trendelenburg position. A small stab incision was made suprapubically and a 5 mm disposable bladeless trocar was inserted into the peritoneal cavity under direct visualization. Once inside pelvic contents were inspected. Next a bipolar Kleppinger instrument was placed through the inferior trocar and the midportion of each tube was brought away from other structures and completely fulgurated on approximate 2-3 cm segment of each tube. Excellent hemostasis was noted. A picture was taken. Pneumo peritoneum was released after the inferior trocar was removed under direct visualization. The upper trocar was then removed. The fascial incision was closed with 0 Vicryl suture in interrupted [id number] stitch. The skin incisions were then closed with 4-0 Vicryl suture in a subcuticular fashion. The skin incisions were then injected with quarter percent Marcaine. Approximately 8 mL were used. Next the kroner uterine manipulator was removed. Pressure was applied to the tenaculum site with a ring forcep to control bleeding. Once the ring forcep was removed, no active bleeding was noted. All sponge and needle counts are correct. The patient is then taken to recovery room in stable condition.
[2018-10-19] MEDS: HYDROmorphone 0.5 MG/0.5 ML SYRINGE IVP PRN ×4 (08:30→08:47)
[2018-10-19 08:31] VITALS: TEMP 97.1
[2018-10-19] MEDS ORDERED: METOCLOPRAMIDE 5 MG/ML 2 ML VIAL IVP ONE (09:47)
[2018-10-19] MEDS ORDERED: PROMETHAZINE INJ 25 MG/ML 1 ML VIAL IVPB ONE (10:53)
[2018-10-19 11:39] VITALS: BP 114/75; PULSE 58; RESP 14
== END 2018-10-19 12:06 | disposition home or self-care (01) ==
LOC: OR 06:24
PROVIDERS: ATTEND Obstetrics & Gynecology
DX: Z30.2 Encounter for sterilization (principal); K21.9 Gastro-esophageal reflux disease without esophagitis; M54.5 Low back pain; M79.10 Myalgia, unspecified site; Z79.1 Long term (current) use of non-steroidal anti-inflammatories (NSAID); Z90.49 Acquired absence of other specified parts of digestive tract; Z82.49 Family history of ischemic heart disease and other diseases of the circulatory system
CPT/HCPCS: 58670; 81025; J1100; J2550; J2710; J2765; J2405; J2001; J3010; J1885; J0330; J2704; J1170

== ENCOUNTER 2018-11-13 10:35 | Emergency (ER) | payer BC ==
[2018-11-13] MEDS ORDERED: KETOROLAC 30 MG/ML 1 ML VIAL IVP STA (11:10)
[2018-11-13 12:08] LABS: Basophils % (A) 0 %; Eosinophils % (A) 0 %; HCT 37.7 % (34.0-46.0); HGB 12.2 gm/dL (11.4-16.0); Lymphocytes # (A) 0.8 k/uL (1.0-4.8); Lymphocytes % (A) 6 %; MCH 29.1 pg (25.0-35.0); MCHC 32.3 g/dL (31.0-37.0); MCV 89.8 fL (80.0-100.0); Mean Platelet Volume 8.9; Monocytes # (A) 0.5 k/uL (0-1.0); Monocytes % (A) 4 %; Neutrophils # (A) 12.8 k/uL (1.3-7.7); Neutrophils % (A) 90 %; Platelet Count 229 k/uL (150-450); RDW 13.8 % (11.5-15.5); WBC 14.3 k/uL (3.8-10.6)
[2018-11-13 12:24] LABS: ALT 26 U/L (9-52); AST 21 U/L (14-36); African American GFR (CKD) >90 (>60 ml/min/1.73 sqM); Albumin 4.2 g/dL (3.5-5.0); Alkaline Phosphatase 83 U/L (38-126); Amylase 43 U/L (30-110); Anion Gap 10 mmol/L; Appearance,Urine Cloudy (Clear); Bacteria,Urine Rare /hpf; Bilirubin,Urine Negative (Negative); Blood Urea Nitrogen 14 mg/dL (7-17); Blood,Urine Small (Negative); Calcium 8.9 mg/dL (8.4-10.2); Carbon Dioxide 23 mmol/L (22-30); Chloride 104 mmol/L (98-107); Color,Urine Yellow; Glucose 101 mg/dL (74-99); Glucose,Urine (UA) Negative (Negative); Ketones,Urine Negative (Negative); Leukocyte Esterase,Urine Trace (Negative); Lipase 39 U/L (23-300); Mucus,Urine Rare /hpf; Nitrite,Urine Negative (Negative); PH, Urine 6.5 (5.0-8.0); Protein,Urine Trace (Negative); RBC,Urine 31 /hpf (0-5); Sodium 137 mmol/L (137-145); Specific Gravity,Urine 1.023 (1.001-1.035); Squamous Epithelial Cell,Urine 14 /hpf (0-4); Total Bilirubin 0.6 mg/dL (0.2-1.3); Total Protein 7.2 g/dL (6.3-8.2); Urobilinogen,Urine <2.0 mg/dL (<2.0); WBC,Urine 4 /hpf (0-5)
--- NOTE | 2018-11-13 12:27 | CT ---
EXAMINATION TYPE: CT abdomen pelvis wo con DATE OF EXAM: 11/13/2018 COMPARISON: None HISTORY: 33-year-old female with genitourinary pain for [address] DLP: 615 mGycm. Automated exposure control for dose reduction was used. TECHNIQUE: Contiguous axial scanning of the abdomen and pelvis without IV contrast. Coronal and sagit michael reconstructions performed. FINDINGS: Heart normal size without pericardial effusion. Lung bases clear without pleural effusion. Liver measures large defect secondary to the presence of a Petra's lobe. Gallbladder not visualized, likely surgically absent. Adrenal glands, right kidney, spleen, and pancreas show no gross abnormality by noncontrast CT. 2 mm nonobstructive left renal calculus. Slight asymmetric prominence to the left renal collecting sy stem. No dilated small bowel, free fluid, or free air. No mesenteric or retroperitoneal lymphadenopathy. Normal appendix is visualized. Scattered mild stool. No pericolonic inflammatory change.. Bladder incompletely distended. Uterus is retroverted. Both ovaries are visualized. There is a 3.1 cm cyst on the left. A 3.2 cm cyst on the right internal mildly hyperdense material, reference axial im age 73. No abnormal fluid collection in the pelvis or pelvic lymphadenopathy seen. Bones: Nonspecific sclerosis right iliac bone. No osseous destructive process. IMPRESSION: 1. Slight asymmetric prominence to the left renal collecting system is probably transient. Recently passed stone is also a possibility. Clinically correlate. 2. In addition, there is a nonobstructive 2 mm left renal calculus. 3. A 3.2 cm right ovarian cyst contains some internal density suggesting a hemorrhagic cyst. 4. Retroverted uterus. Normal appendix.
--- NOTE | 2018-11-13 13:10 | XR ---
EXAMINATION TYPE: XR KUB DATE OF EXAM: 11/13/2018 CLINICAL DATA: 33 year-old female abdominal pain, [facility] COMPARISON: 07/11/2017 FINDINGS: Lung bases are clear. No evidence for free intraperitoneal air. No dilated small bowel or air-fluid levels. Air seen extending distally to the rectum. Mild scattered stool burden. No suspicious calcifications identified. No metallic densities within the abdomen. IMPRESSION: No evidence of bowel obstruction or free intraperitoneal air.
--- NOTE | 2018-11-13 13:44 | ED ---
Abdominal Pain HPI - General Chief Complaint: Abdominal Pain Stated Complaint: Female /pain Time Seen by Provider: 11/13/18 10:56 Source: patient Mode of arrival: ambulatory Limitations: no limitations - History of Present Illness Initial Comments: Patient is a 33-year-old female presents emergency Department for abdominal pain. Patient reports taking the prescribed a tubal ligation procedure approximately 2 weeks ago with a copy dictations. Patient reports yesterday she developed a mild left suprapubic pain that was dull in nature and has since progressed to an 8 and sharp. Patient reports the pain has been radiating to the mid suprapubic region as well. Patient denies increased urgency, frequency, dysuria or vaginal discharge. Patient denies nausea, vomiting, diarrhea. Patient reports a fever since yesterday which has not resolved. Patient denies headache, chest pain, chest tightness, back pain or extremity paresthesias. Patient denies a history of kidney stones. Patient reports taking one [place] 5 with minimal improvement. - Related Data Home Medications Medication Instructions Recorded Confirmed Acetaminophen Tab [Tylenol Tab] 1,000 mg PO Q6HR PRN 11/13/18 11/13/18 HYDROcodone/APAP 5-325MG [[place] 1 tab PO Q6HR PRN 11/13/18 11/13/18 5-325] Allergies Allergy/AdvReac Type Severity Reaction Status Date / Time No Known Allergies Allergy Verified 11/13/18 11:33 Review of Systems ROS Statement: Those systems with pertinent positive or pertinent negative responses have been documented in the HPI. ROS Other: All systems not noted in ROS Statement are negative. Past Medical History Past Medical History: No Reported History History of Any Multi-Drug Resistant Organisms: None Reported Additional Past Surgical History / Comment(s): D&C Past Anesthesia/Blood Transfusion Reactions: No Reported Reaction Past Psychological History: No Psychological Hx Reported Past Alcohol Use History: None Reported - Past Family History Mother Family Medical History: Coronary Artery Disease (CAD) Additional Family Medical History / Comment(s): Pacemaker and defibrillator placed. General Exam Limitations: no limitations General appearance: alert, in no apparent distress Head exam: Present: atraumatic, normocephalic, normal inspection Eye exam: Present: normal appearance, PERRL, EOMI Pupils: Present: normal accommodation ENT exam: Present: normal exam, normal oropharynx, mucous membranes moist, TM's normal bilaterally, normal external ear exam Neck exam: Present: normal inspection, full ROM Respiratory exam: Present: normal lung sounds bilaterally Cardiovascular Exam: Present: regular rate, normal rhythm, normal heart sounds GI/Abdominal exam: Present: soft, tenderness (Left and midline suprapubic), normal bowel sounds, other (Negative McBurney point tenderness, negative Aviles sign, negative rebound tenderness, negative Rovsing sign, negative psoas sign.). Absent: distended, guarding, rebound External exam: Present: normal external exam Speculum exam: Present: normal speculum exam. Absent: erythema, vaginal d ischarge, cervical discharge, vaginal bleeding, foreign body, laceration Extremities exam: Present: normal inspection, full ROM Back exam: Present: normal inspection, full ROM. Absent: CVA tenderness (R), CVA tenderness (L) Neurological exam: Present: alert, oriented X3 Psychiatric exam: Present: normal affect, normal mood Skin exam: Present: warm, intact, normal color Course Vital Signs 11/13/18 11/13/18 10:47 13:23 Temperature 101.2 F H 98.8 F Pulse Rate 102 H 94 Respiratory 16 16 Rate Blood Pressure 125/74 126/66 O2 Sat by Pulse 98 96 Oximetry Medical Decision Making - Medical Decision Making Patient is a 33-year-old female presents emergency Department with abdominal pain. CT of abdomen and pelvis is indicated of a slight asymmetric prominence to the left renal collecting is probably transient. Most likely a recently passed kidney stone. There is a 2 mm nonobstructive left renal calculi. Also there is a 3.2 cm right ovarian cyst containing some internal densities suggesting a hemorrhagic cyst. Retroverted uterus also noted. Labs are indicating leukocytosis. Cervical cultures, gonorrhea and chlamydia sent. On reevaluation the patient feels more comfortable and does not have a fever. The source of the fever cannot be determined. At this point patient will be discharged with strict return parameters. Patient is understanding and agreeable. Case discussed with physician. - Lab Data Result diagrams: 11/13/18 11:39 11/13/18 11:39 Lab Results 11/13/18 11/13/18 11/13/18 Range/Units 11:39 11:39 11:39 WBC 14.3 H (3.8-10.6) k/uL RBC 4.20 (3.80-5.40) m/uL Hgb 12.2 (11.4-16.0) gm/dL Hct 37.7 (34.0-46.0) % MCV 89.8 (80.0-100.0) fL MCH 29.1 (25.0-35.0) pg MCHC 32.3 (31.0-37.0) g/dL RDW 13.8 (11.5-15.5) % Plt Count 229 (150-450) k/uL Neutrophils % 90 % Lymphocytes % 6 % Monocytes % 4 % Eosinophils % 0 % Basophils % 0 % Neutrophils # 12.8 H (1.3-7.7) k/uL Lymphocytes # 0.8 L (1.0-4.8) k/uL Monocytes # 0.5 (0-1.0) k/uL Eosinophils # 0.0 (0-0.7) k/uL Basophils # 0.0 (0-0.2) k/uL Sodium 137 (137-145) mmol/L Potassium 4.0 (3.5-5.1) mmol/L Chloride 104 (98-107) mmol/L Carbon Dioxide 23 (22-30) mmol/L Anion Gap 10 mmol/L BUN 14 (7-17) mg/dL Creatinine 0.82 (0.52-1.04) mg/dL Est GFR (CKD-EPI)AfAm >90 (>60 ml/min/1.73 sqM) Est GFR (CKD-EPI)NonAf >90 (>60 ml/min/1.73 sqM) Glucose 101 H (74-99) mg/dL Calcium 8.9 (8.4-10.2) mg/dL Total Bilirubin 0.6 (0.2-1.3) mg/dL AST 21 (14-36) U/L ALT 26 (9-52) U/L Alkaline Phosphatase 83 (38-126) U/L Total Protein 7.2 (6.3-8.2) g/dL Albumin 4.2 (3.5-5.0) g/dL Amylase 43 (30-110) U/L Lipase 39 (23-300) U/L Urine Color Yellow Urine Appearance Cloudy H (Clear) Urine pH 6.5 (5.0-8.0) Ur Specific [place] 1.023 (1.001-1.035) Urine Protein Trace H (Negative) Urine Glucose (UA) Negative (Negative) Urine Ketones Negative (Negative) Urine Blood Small H (Negative) Urine Nitrite Negative (Negative) Urine Bilirubin Negative (Negative) Urine Urobilinogen <2.0 (<2.0) mg/dL Ur Leukocyte Esterase Trace H (Negative) Urine RBC 31 H (0-5) /hpf Urine WBC 4 (0-5) /hpf Ur Squamous Epith Cells 14 H (0-4) /hpf Urine Bacteria Rare H (None) /hpf Urine Mucus Rare H (None) /hpf Disposition Clinical Impression: Fever, Abdominal pain Disposition: HOME SELF-CARE Condition: Stable Instructions (If sedation given, give patient instructions): Abdominal Pain (ED) Additional Instructions: Please follow up with [facility]. Please return to emergency department if symptoms worsen. Is patient prescribed a controlled substance at d/c from ED?: No Referrals: Sirisha Lantigua DO [Primary Care Provider] - 1-2 days Time of Disposition: 14:50
[2018-11-13 15:27] VITALS: BP 99/70; TEMP 99.3
[2018-11-13 15:30] VITALS: PULSE 103; RESP 18
[2018-11-14 15:28] LABS: C. trachomatis,PCR Negative (Neg,Equiv); Chlamydia trachomatis Source Vagina; N. gonorrhoeae,PCR Negative (Neg,Equiv); Neisseria Source Vagina
== END 2018-11-13 15:31 | disposition home or self-care (01) ==
LOC: EC 10:35
DX: R10.30 Lower abdominal pain, unspecified (principal); R50.9 Fever, unspecified; N20.0 Calculus of kidney; N83.201 Unspecified ovarian cyst, right side; N85.4 Malposition of uterus
CPT/HCPCS: 36415; 80053; 82150; 83690; 85025; 81001; 87808; 87491; 87591; 87070; 87205; 74018; 74176; 99284; 96374; J1885

== ENCOUNTER → 2024-10-12 | Outpatient (CLI) | payer BC ==
--- NOTE | 2024-10-15 07:02 | MM ---
Reason for Exam: Screening (asymptomatic). Patient History: Menarche at age 11. First Full-Term at age 23. Premenopausal. Maternal aunt had breast cancer. Risk Values: Kaylan 5 year model risk: 0.7%. NCI Lifetime model risk: 11.0%. Tissue Density: The breasts are heterogeneously dense, which may obscure small masses. Findings: Analyzed By CAD. There are 2 focal asymmetries in the right breast upper aspect on MLO view without corresponding abnormalities on cc view. Summation density versus true lesions. Overall Assessment: Incomplete: need additional imaging evaluation, BI-RAD 0 Management: Special View Mammogram of the right breast. Advised spot 3-D and 3-D true lateral views right breast. Patient should continue monthly self-breast exams. A clinical breast exam by your physician is recommended on an annual basis. This exam should not preclude additional follow-up of suspicious palpable abnormalities. Note on Kaylan scores and lifetime risk: 1. A Kaylan score greater than 3% is considered moderate risk. If this is the case, consider specialist referral to assess eligibility for a risk reducing agent. 2. If overall lifetime risk for the development of breast cancer is 20% or higher, the patient may qualify for future screening with alternating mammogram and breast MRI. [facility], , 10/15/2024 6:58 AM. Electronically signed and approved by: Toni Guzman M.D.
== END | disposition home or self-care (01) ==
LOC: RADMAMWWP 15:55
PROVIDERS: ATTEND Family Medicine
DX: Z12.31 Encounter for screening mammogram for malignant neoplasm of breast (principal); R92.333 Mammographic heterogeneous density, bilateral breasts; Z80.3 Family history of malignant neoplasm of breast
CPT/HCPCS: 77067

== ENCOUNTER → 2024-10-18 | Outpatient (CLI) | payer BC ==
--- NOTE | 2024-10-18 13:51 | MM ---
Reason for Exam: Additional evaluation requested from abnormal screening. Last screening mammogram was performed less than 1 month ago. Patient History: Menarche at age 11. First Full-Term at age 23. Premenopausal. Patient has history of breast feeding. Maternal aunt had breast cancer. Last menstrual period: 10/15/2024 Risk Values: Kaylan 5 year model risk: 0.7%. NCI Lifetime model risk: 11.0%. Prior Study Comparison: 10/12/2024 Bilateral MG screening mammo w CAD, [facility]. Tissue Density: Right: The breasts are heterogeneously dense, which may obscure small masses. Findings: Analyzed By CAD. Density in the upper margin right breast persists upon compression. Overall Assessment: Incomplete: need additional imaging evaluation, BI-RAD 0 Management: Diagnostic Breast Ultrasound of the right breast. . Results were given to the patient verbally at the time of exam. Patient should continue monthly self-breast exams. A clinical breast exam by your physician is recommended on an annual basis. This exam should not preclude additional follow-up of suspicious palpable abnormalities. Note on Kaylan scores and lifetime risk: 1. A Kaylan score greater than 3% is considered moderate risk. If this is the case, consider specialist referral to assess eligibility for a risk reducing agent. 2. If overall lifetime risk for the development of breast cancer is 20% or higher, the patient may qualify for future screening with alternating mammogram and breast MRI. [facility], , 10/18/2024 1:48 PM. Electronically signed and approved by: Doni Baugh M.D. Radiologis
--- NOTE | 2024-10-18 14:17 | USB ---
Reason for Exam: Additional evaluation requested from abnormal screening. Patient History: Menarche at age 11. First Full-Term at age 23. Premenopausal. Patient has history of breast feeding. Maternal aunt had breast cancer. Risk Values: Kaylan 5 year model risk: 0.7%. NCI Lifetime model risk: 11.0%. Technique: Method: Targeted. Prior Study Comparison: 10/12/2024 Bilateral MG screening mammo w CAD, [facility]. Findings: The upper outer quadrant of the right breast, the axilla of the right breast and the retroareolar of the right breast were scanned. A of 9-12 o'clock of the right breast, nipple and retro-areolar region were reviewed. No solid or cystic masses are identified.. Overall Assessment: Probably benign, BI-RAD 3 Management: Diagnostic Mammogram of the right breast in 6 months. A clinical breast exam by your physician is recommended on an annual basis and results should be correlated with mammographic findings. This exam should not preclude additional follow-up of suspicious palpable abnormalities. Results were given to the patient verbally at the time of exam. [facility], , 10/18/2024 2:14 PM. Electronically signed and approved by: Doni Baugh M.D. Radiologis
== END | disposition home or self-care (01) ==
LOC: RADMAMWWP 13:21
PROVIDERS: ATTEND Family Medicine
DX: R92.8 Other abnormal and inconclusive findings on diagnostic imaging of breast (principal); R92.331 Mammographic heterogeneous density, right breast; Z80.3 Family history of malignant neoplasm of breast
CPT/HCPCS: 77061; 77065